=== PATIENT | female | born 1970 | race Caucasian/White ===

== ENCOUNTER → 2022-03-26 | Outpatient (CLI) | payer BC ==
[~2022-03-26] MED LIST: ARMOUR THYROID30 MG PO; CELEXA20 MG PO; ESTRADIOL1 EA10 TD; PROGESTERONE200 MG PO; SPIRONOLACTONE50 MG PO; VITAMIN D21250 MCG PO
== END ==
LOC: KOH-I 09:00
DX: S82.851A Displaced trimalleolar fracture of right lower leg, initial encounter for closed fracture (principal); X58.XXXA Exposure to other specified factors, initial encounter
CPT/HCPCS: 73700

== ENCOUNTER → 2022-03-27 | Outpatient (CLI) | payer BC ==
[2022-03-27 11:06] LABS: HEMOGLOBIN 13.3 gm/dl (12.3-15.3); RED BLOOD COUNT 3.9 M/UL (4.00-5.10); WHITE BLOOD COUNT 10.5 K/UL (4.5-11.0)
[2022-03-27 11:22] LABS: BUN/CREATININE RATIO 18 (0-10)
== END ==
LOC: OPSV2 10:00
PROVIDERS: Podiatrist Foot & Ankle Surgery
DX: Z01.812 Encounter for preprocedural laboratory examination (principal)
CPT/HCPCS: 80048; 85027

== ENCOUNTER → 2022-03-29 | Day surgery (SDC) | payer BC ==
[~2022-03-29] VITALS: Ht 165.1 cm; Wt 85.3 kg
== END | disposition home or self-care (01) ==
LOC: OR 09:08
DX: S82.841A Displaced bimalleolar fracture of right lower leg, initial encounter for closed fracture (principal); M25.371 Other instability, right ankle; S93.421A Sprain of deltoid ligament of right ankle, initial encounter; S82.51XA Displaced fracture of medial malleolus of right tibia, initial encounter for closed fracture; M65.871 Other synovitis and tenosynovitis, right ankle and foot; E03.9 Hypothyroidism, unspecified; W01.0XXA Fall on same level from slipping, tripping and stumbling without subsequent striking against object, initial encounter
CPT/HCPCS: 73610; 76000; C1713; J0171; J0690; J1100; J1170; J1885; J2001; J2250; J2405; J2704; J2795; J3370

== ENCOUNTER → 2022-04-04 | Outpatient (CLI) | payer BC | LOC: KOH-I 13:48 | DX: S82.841D Displaced bimalleolar fracture of right lower leg, subsequent encounter for closed fracture with routine healing (principal) | CPT/HCPCS: 73610 ==

== ENCOUNTER → 2022-04-18 | Outpatient (CLI) | payer BC | LOC: KOH-I 09:03 | DX: S82.841D Displaced bimalleolar fracture of right lower leg, subsequent encounter for closed fracture with routine healing (principal) | CPT/HCPCS: 73610 ==

== ENCOUNTER → 2022-05-02 | Outpatient (CLI) | payer BC | LOC: KOH-I 09:44 | DX: S82.841A Displaced bimalleolar fracture of right lower leg, initial encounter for closed fracture (principal); Z96.661 Presence of right artificial ankle joint | CPT/HCPCS: 73610 ==

== ENCOUNTER → 2022-05-16 | Outpatient (CLI) | payer BC | LOC: KOH-I 10:01 | DX: S82.841D Displaced bimalleolar fracture of right lower leg, subsequent encounter for closed fracture with routine healing (principal); Z96.661 Presence of right artificial ankle joint | CPT/HCPCS: 73610 ==